=== PATIENT | female | born 1985 | race Caucasian/White ===

== ENCOUNTER 2021-02-06 11:38 | Emergency (ER) | payer OTHER ==
[~2021-02-06] VITALS: Ht 162.6 cm; Wt 107.0 kg
[2021-02-06] MEDS ORDERED: SUPER THERAVIT1 EACH PO (11:55)
[2021-02-06] MEDS ORDERED: TRAMADOL 50 MG50 MG PO (11:55)
[2021-02-06] MEDS ORDERED: AMBIEN 10 MG TA10 MG PO (11:55)
[2021-02-06] MEDS ORDERED: ZOLOFT50 M1 PO (11:55)
[2021-02-06] MEDS ORDERED: CLONAZEPAM 0.50.5 M1 PO (11:55)
[2021-02-06 12:05] LABS: ABSOLUTE EOSINOPHILS 0.3 thou/uL (0.0-0.7); ABSOLUTE LYMPHOCYTES 1.6 thou/uL (0.8-5.3); ABSOLUTE MONOCYTES 0.5 thou/uL (0.0-1.2); ABSOLUTE NEUTROPHILS 5.1 thou/uL (1.6-8.1); BASOPHILS 0.6 %; EOSINOPHILS 3.7 %; HEMATOCRIT 37.6 % (37.0-47.0); HEMOGLOBIN 12.5 gm/dL (12.0-15.0); LYMPHOCYTES 21.3 %; MCH 29.7 pg (26.0-34.0); MCHC 33.2 g/dL (28.0-37.0); MCV 89.5 fL (80.0-100.0); MONOCYTES 6.6 %; MPV 9.5 fl. (7.2-11.1); NUCLEATED RBCS 0 /100WBC; PLATELET COUNT* 244 thou/uL (150-400); POLYS 67.8 %; RBC 4.21 mil/uL (4.20-5.00); RDW-CV 12.5 % (10.5-14.5); WBC 7.6 thou/uL (4.0-11.0)
[2021-02-06 12:15] LABS: CALCIUM 9.3 mg/dL (8.5-10.1); CREATININE 0.8 mg/dL (0.6-1.3); POTASSIUM 3.9 mmol/L (3.5-5.1)
[2021-02-06 12:17] LABS: ALBUMIN 3.5 g/dL (3.4-5.0)
[2021-02-06 12:31] LABS: TOTAL BILIRUBIN 0.5 mg/dL (<0.1-1.0)
[2021-02-06 13:50] LABS: URINE BILIRUBIN NEGATIVE (Negative); URINE BLOOD NEGATIVE (Negative); URINE CLARITY CLEAR; URINE COLOR YELLOW; URINE GLUCOSE-RANDOM NEGATIVE (Negative); URINE KETONES NEGATIVE (Negative); URINE LEUKOCYTES-REFLEX NEGATIVE (Negative); URINE NITRITE-REFLEX NEGATIVE (Negative); URINE PROTEIN NEGATIVE (Negative); URINE UROBILINOGEN 0.2 E.U./dl (0.2-1.0)
[2021-02-06] MEDS ORDERED: ZOFRAN ODT4 MG PO (14:15)
[2021-02-06] MEDS ORDERED: REGLAN 10 MG TA10 MG PO (14:19)
[2021-02-06] MEDS ORDERED: BENTYL 10 MG CA10 M1 PO (14:39)
[2021-02-06 14:50] VITALS: BP 107/64
--- NOTE | 2021-02-06 17:11 | EKG ---
[place] [address] ELECTROCARDIOGRAM REPORT Name: LISET SALOMON Room: [facility]#: [id number] Admission: 02/06/21 Attend Phys: Discharge: 02/06/21 Date of : 81 Date of Service: 02/06/21 1242 Report #: [id number] THIS REPORT FOR: //name// [facility] ED Test Date: 2021-02-06 Test Time: 12:42:37 Pat Name: LISET SALOMON Department: Room: Gender: F Hog Man: [facility] : 1985 Requested By: Snow Abarca Order Number: [id number] MD: Ronen Springer Measurements Intervals [place] Rate: 51 P: 53 OK: 157 QRS: 54 QRSD: 105 T: 16 QT: 457 QTc: 421 Interpretive Statements Sinus rhythm Baseline wander in lead(s) V4 No previous ECG available for comparison Electronically Signed On 02-06-2021 17:11:17 CDT by Ronen Springer [email or web address] <ELECTRONICALLY SIGNED> By: Ronen Springer MD, [facility] 02/06/21 1711 1242 124 Ronen Springer MD, [facility] /EPI
== END 2021-02-06 14:56 | disposition home or self-care (01) ==
LOC: M.ERS 11:38
PROVIDERS: Nurse Practitioner Family
DX: K56.7 Ileus, unspecified (principal); G89.18 Other acute postprocedural pain; E66.9 Obesity, unspecified; Z68.41 Body mass index [BMI] 40.0-44.9, adult